=== PATIENT | male | born 1970 | race Caucasian/White ===

== ENCOUNTER 2023-10-29 17:21 | Emergency (ER) | payer OTHER ==
[2023-10-29 17:36] VITALS: RESP 18
[2023-10-29] MEDS: SODIUM CHLORIDE 0.9% 1,000 ML IV STA (18:21)
[2023-10-29] MEDS: ONDANSETRON 4 MG/2 ML VIAL IVP STA (18:21)
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
[2023-10-29] MEDS: ACETAMINOPHEN TAB 500 MG TAB PO STA (18:38)
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
[2023-10-29] MEDS: IPRATROPIUM-ALBUTEROL 3 ML NEB INHALATION STA (18:41)
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
[2023-10-29 19:02] LABS: Basophils % (A) 1 %; Eosinophils # (A) 0.2 k/uL (0-0.7); Eosinophils % (A) 2 %; HCT 41.9 % (39.0-53.0); HGB 13.5 gm/dL (13.0-17.5); Lymphocytes # (A) 1.8 k/uL (1.0-4.8); Lymphocytes % (A) 19 %; MCHC 32.3 g/dL (31.0-37.0); MCV 92.8 fL (80.0-100.0); Mean Platelet Volume 7.7; Monocytes # (A) 0.3 k/uL (0-1.0); Monocytes % (A) 3 %; Neutrophils # (A) 6.8 k/uL (1.3-7.7); Neutrophils % (A) 74 %; Platelet Count 245 k/uL (150-450); RBC 4.51 m/uL (4.30-5.90); RDW 13.1 % (11.5-15.5); WBC 9.2 k/uL (3.8-10.6)
[2023-10-29 19:13] LABS: ALT 33 U/L (4-49); AST 33 U/L (17-59); African American GFR (CKD) 80 (>60 ml/min/1.73 sqM); Albumin 4.1 g/dL (3.5-5.0); Alcohol <10 mg/dL; Alkaline Phosphatase 57 U/L (38-126); Anion Gap 5 mmol/L; Blood Urea Nitrogen 16 mg/dL (9-20); Carbon Dioxide 29 mmol/L (22-30); Chloride 103 mmol/L (98-107); Glucose 100 mg/dL (74-99); Non-African American GFR(CKD) 69 (>60 ml/min/1.73 sqM); Potassium 3.8 mmol/L (3.5-5.1); Sodium 137 mmol/L (137-145); Total Bilirubin 0.5 mg/dL (0.2-1.3); Total Protein 7.2 g/dL (6.3-8.2)
[2023-10-29 19:17] LABS: Partial Thromboplastin Time 24.3 sec (22.0-30.0); Prothrombin Time 10.7 sec (10.0-12.5)
[2023-10-29 19:20] LABS: Appearance,Urine Clear (Clear); Bilirubin,Urine Negative (Negative); Blood,Urine Negative (Negative); Color,Urine Yellow; Glucose,Urine (UA) Negative (Negative); Ketones,Urine Negative (Negative); Leukocyte Esterase,Urine Negative (Negative); Nitrite,Urine Negative (Negative); PH, Urine 5.5 (5.0-8.0); Protein,Urine Trace (Negative); Specific Gravity,Urine 1.023 (1.001-1.035); Urobilinogen,Urine <2.0 mg/dL (<2.0)
[2023-10-29 19:33] LABS: Amphetamine Screen,Urine Not Detected (NotDetected); Barbiturate Screen,Urine Not Detected (NotDetected); Benzodiazepines Screen,Urine Not Detected (NotDetected); Cocaine Screen,Urine Not Detected (NotDetected); Methadone Screen, Urine Not Detected (NotDetected); Opiate Screen,Urine Not Detected (NotDetected); Oxycodone Screen, Urine Not Detected (NotDetected); Phencyclidine Screen,Urine Not Detected (NotDetected); Tricyclic Antidepressant,Urine Not Detected (NotDetected); Urn Cannabinoid Scrn Not Detected (NotDetected)
[2023-10-29] MEDS: AZITHROMYCIN 500 MG TAB PO STA (20:16)
[2023-10-29] MEDS: predniSONE 20 MG TAB PO STA (20:16)
[2023-10-29 20:20] VITALS: BP 148/72; PULSE 78; TEMP 98.8
== END 2023-10-29 20:25 | disposition home or self-care (01) ==
LOC: EC 17:21
DX: J40 Bronchitis, not specified as acute or chronic (principal); R55 Syncope and collapse; F17.200 Nicotine dependence, unspecified, uncomplicated; Z04.1 Encounter for examination and observation following transport accident; Z88.0 Allergy status to penicillin; Z88.5 Allergy status to narcotic agent; V49.9XXA Car occupant (driver) (passenger) injured in unspecified traffic accident, initial encounter
CPT/HCPCS: 99285 ×2; 96374 ×2; 96361 ×3; 36415; 94640; 93005; 86900; 86901; 80053; 83605; 85025; 85610; 85730; 86850; 81003; 80306; 80320; 87636; 72170; 71045; 72125; 70450; J2405; J7512